=== PATIENT | female | born 1950 | race Caucasian/White ===

== ENCOUNTER 2017-11-17 12:30 | Outpatient (RCR) | payer MEDICARE, BC ==
[~2017-11-17 12:30] MED LIST: AMITRIPTYLINE50 MG PO; ATIVAN 0.50.5 MG/TAB; CALCIUM + D 6001 TA1 PO; FLAX OIL1000 MG; LEXAPRO20 MG PO; LORTAB 5/500 501 TAB PO; PROTONIX40 MG PO; SUPER EPA 1201200 MG PO; TOPAMAX25 M1 PO; TOPAMAX50 MG; VITAB-C1 TAB PO
== END 2017-11-22 | disposition home or self-care (01) ==
LOC: MKS.ESL.PT
DX: M54.2 Cervicalgia (principal); R51 Headache
CPT/HCPCS: G8978-GP; G8979-GP

== ENCOUNTER 2017-12-21 09:30 | Outpatient (RCR) | payer MEDICARE, BC | END 2017-12-22 11:20 | disposition home or self-care (01) | LOC: MKS.ESL.PT 09:30 | DX: M54.2 Cervicalgia (principal); R51 Headache | CPT/HCPCS: G8979-GP; G8980-GP ==

== ENCOUNTER → 2018-08-17 | Outpatient (CLI) | payer MEDICARE, BC | LOC: MC.RAD 08:40 | DX: Z12.31 Encounter for screening mammogram for malignant neoplasm of breast (principal) ==

== ENCOUNTER → 2019-08-23 | Outpatient (CLI) | payer MEDICARE, BC | LOC: MC.RAD 10:45 | DX: Z12.31 Encounter for screening mammogram for malignant neoplasm of breast (principal) ==

== ENCOUNTER → 2020-08-25 | Outpatient (CLI) | payer MEDICARE, BC | LOC: MC.RAD 09:15 | DX: Z12.31 Encounter for screening mammogram for malignant neoplasm of breast (principal) ==

== ENCOUNTER → 2021-07-15 | Outpatient (CLI) | payer MEDICARE, BC | LOC: COL.RAD 09:15 | DX: N13.30 Unspecified hydronephrosis (principal); Z90.49 Acquired absence of other specified parts of digestive tract ==

== ENCOUNTER → 2021-09-11 | Outpatient (CLI) | payer MEDICARE, BC | LOC: MC.RAD 10:13 | DX: Z12.31 Encounter for screening mammogram for malignant neoplasm of breast (principal) ==

== ENCOUNTER 2022-02-24 19:39 | Emergency (ER) | payer MEDICARE, BC ==
[~2022-02-24] VITALS: Ht 167.6 cm; Wt 74.1 kg
[2022-02-24 19:47] VITALS: TEMP 97.9
[2022-02-24 20:39] LABS: BASO # 0.1 K/mm3 (0.0-0.2); BASO % 0.8 % (0.0-2.0); EOS # 0.1 K/mm3 (0.0-0.7); EOS % 2.3 % (0.0-4.0); GRAN # 3.6 K/mm3 (1.4-6.5); HEMATOCRIT 37.4 % (37.0-47.0); HEMOGLOBIN 12.4 g/dl (12.5-16.0); LYMPH # 1.7 K/mm3 (1.2-3.4); LYMPH % 27.6 % (20.0-51.0); MEAN CELL VOLUME 92 fl (80.0-100.0); MEAN CORPUSCULAR HEMOGLOBIN 31 pg (27-31); MEAN CORPUSCULAR HGB CONC 33 g/dl (33.0-37.0); MEAN PLATELET VOLUME 10.2 fl (7.4-10.4); MONO # 0.6 K/mm3 (0.1-0.6); PLATELET COUNT 254 K/mm3 (130-400); RED BLOOD COUNT 4.05 M/mm3 (4.10-5.30); REDCELL DISTRIBUTION WIDTH-CV 13.3 % (11.5-14.5)
[2022-02-24 20:47] LABS: INR 1.1 (0.8-3.0); PROTHROMBIN TIME 12.1 SECONDS (9.7-12.8)
[2022-02-24 20:56] LABS: ALBUMIN 3.9 gm/dL (3.4-4.8); BILIRUBIN,TOTAL 0.7 mg/dL (0.2-1.2); CALCIUM 9.1 mg/dL (8.4-10.2); CREATININE, serum 0.77 mg/dL (0.57-1.11); POTASSIUM 3.9 mmol/L (3.5-4.5); TOTAL PROTEIN 6.7 gm/dL (6.2-8.1)
[2022-02-24 23:00] VITALS: BP 134/68; PULSE 67
== END 2022-02-24 23:04 | disposition home or self-care (01) ==
LOC: COL.ER 19:39
PROVIDERS: Physician Assistant
DX: K92.2 Gastrointestinal hemorrhage, unspecified (principal)
CPT/HCPCS: J7030; Q9967

== ENCOUNTER → 2022-11-17 | Outpatient (CLI) | payer MEDICARE, BC | LOC: COL.RAD 12:25 | DX: M17.11 Unilateral primary osteoarthritis, right knee (principal); M94.261 Chondromalacia, right knee; S83.281A Other tear of lateral meniscus, current injury, right knee, initial encounter; M71.21 Synovial cyst of popliteal space [Baker], right knee ==

== ENCOUNTER 2023-02-01 12:43 | Outpatient (RCR) | payer MEDICARE, BC | END 2023-02-02 | LOC: MKS.ESL.PT | DX: Z96.651 Presence of right artificial knee joint (principal) ==

== ENCOUNTER → 2023-09-15 | Outpatient (CLI) | payer MEDICARE, BC | LOC: MC.RAD 10:41 | DX: Z12.31 Encounter for screening mammogram for malignant neoplasm of breast (principal) ==